=== PATIENT | male | born 1970 | race Caucasian/White ===

== ENCOUNTER → 2016-10-20 | Outpatient (CLI) | payer BC ==
[~2016-10-20] MED LIST: ADVA250A INH; ALIG4CAP PO; AMLO10TA2 PO; AZEL137S EACH NARE; B12-1CHW CHEW; CHOL100025 CHEW; DICY10CA12 PO; METO50TA PO; MONT10TA4 PO; OMEP40CA2 PO; RANI150T PO; TEST200I12 IM; TRIA37.5 PO; [UNRECOGNIZED DRUG - CODE] PO
--- NOTE | 2016-10-25 09:48 | RSPPFT ---
DATE OF PROCEDURE: 10/20/16 COMMENTS: VOLUMES DYNAMIC: FVC and FEV1 moderately reduced. STATIC: TLC and VTG normal; RV mildly increased. FLOWS: FEV1% normal; FEF 25-75 moderately reduced. DIFFUSION: Normal. FLOW VOLUME LOOP: Terminal airflow obstruction. IMPRESSION: Mild obstructive ventilatory defect with very mild hyperinflation and normal airways resistance. Diffusion is normal. There is minimal change post-bronchodilator.
== END ==
LOC: HRSP 07:55
PROVIDERS: ATTEND Internal Medicine
DX: J44.9 Chronic obstructive pulmonary disease, unspecified (principal)
CPT/HCPCS: 94060; 94620; 94726; 94729; 95012